=== PATIENT | male | born 1965 | race Asian ===

== ENCOUNTER → 2017-08-19 11:29 | Outpatient (CLI) | payer OTHER, SELFPAY ==
[2017-08-19 15:58] LABS: Cholesterol 241 mg/dL (200); High Density Lipoprotein 54 mg/dL; Triglycerides 161 mg/dL; Very Low Density Lipoprotein 32 mg/dL (5-40)
[2017-08-19 15:59] LABS: Hemoglobin A1c 6.8 % (4.2-6.3)
== END ==
PROVIDERS: Family Provider Family Medicine; PCP Family Medicine; Visit Provider Family Medicine
DX: E11.9 Type 2 diabetes mellitus without complications (principal); E78.1 Pure hyperglyceridemia
CPT/HCPCS: 36415; 80061; 83036

== ENCOUNTER → 2018-03-31 12:29 | Outpatient (CLI) | payer OTHER, SELFPAY ==
--- NOTE | 2018-03-31 12:34 | RAD_ITS ---
STUDY: X-RAY CHEST REASON FOR EXAM: Male, 53 years old. Pain. TECHNIQUE: Frontal and lateral views of the chest. COMPARISON: None. FINDINGS: The lungs are clear and expanded. There is no demonstrated pleural abnormality. Normal size heart. Normal mediastinum and aaliyah. Normal visualized pulmonary arteries. Normal visualized aortic arch and descending thoracic aorta. Normal visualized thoracic spine. Normal visualized ribs, clavicles, and shoulders. There is no demonstrated abnormality of the visualized soft tissue structures of the upper abdomen. RAD/Chest PA and Lateral IMPRESSION: Normal x-ray examination of the chest. Electronically Signed: Leon Morton MD at 12:44 EDT , Service support ,
== END ==
PROVIDERS: Family Provider Family Medicine; PCP Family Medicine; Visit Provider Family Medicine
DX: R07.9 Chest pain, unspecified (principal)
CPT/HCPCS: 71046

== ENCOUNTER → 2018-08-23 11:35 | Outpatient (CLI) | payer OTHER, SELFPAY | PROVIDERS: Family Provider Family Medicine; PCP Family Medicine; Referring Provider Family Medicine; Visit Provider Family Medicine | DX: E11.21 Type 2 diabetes mellitus with diabetic nephropathy (principal); E78.5 Hyperlipidemia, unspecified; I10 Essential (primary) hypertension; M10.9 Gout, unspecified ==

== ENCOUNTER → 2019-01-18 | Outpatient (CLI) | payer OTHER, SELFPAY | END | disposition home or self-care (01) | LOC: LABSPEC 01-19 06:47 | PROVIDERS: Family Provider Family Medicine; PCP Family Medicine; Visit Provider Family Medicine | DX: L82.0 Inflamed seborrheic keratosis (principal) ==

== ENCOUNTER → 2019-01-18 | Outpatient (CLI) | payer OTHER, SELFPAY ==
--- NOTE | 2019-01-18 | TISS_PTH ---
PATIENT: MERY MADRID LOC: [facility] U#:[id number] AGE/SX: 54/M ROOM: RE01/18/[address]: Dr. Myron Ramos DO : 1965 BED: DIS: 01/18/2019 SPEC #: [id number] RECD: 01/18/19 17:15 STATUS: JEREMY NAHOMY #: [id number] DANIELA: 01/18/19 00:[address]: Myron Ramos DEPT: SURGICAL PATHOLOGY RECD BY: Taisha Bob Tissues: Skin of arm Procedures: Surgery Specimen Level IV HEADER OPERATION: Punch biopsy atypical mole PRE-OP DIAGNOSIS: Changing dark nevus right elbow, rule out melanoma TISSUE SUBMITTED: Punch biopsy, 5mm, right elbow MICROSCOPIC DIAGNOSIS Skin lesion of right elbow, punch biopsy: Verrucoid keratosis with mild atypia. Parakeratosis. See comment. AM:denisse 01/22/19 COMMENT A melanotic lesion is not identified.. Excision is recommended if clinically indicated. Case has been reviewed in consultation with Dr. Knight who concurs with the above diagnosis. IDC:ELENA MICROSCOPIC DESCRIPTION Slides are reviewed. GROSS DESCRIPTION Received is one container labeled with the patient's name and not further designated. The specimen consists of a punch biopsy of guzman-white skin measuring 0.4 cm in diameter and 0.3 cm in length. The entire specimen is submitted in one cassette. / ELENA:denisse 01/19/19 TC:5 CPT: 93440
== END | disposition home or self-care (01) ==
PROVIDERS: Family Provider Family Medicine; PCP Family Medicine; Referring Provider Family Medicine; Visit Provider Family Medicine
DX: L82.0 Inflamed seborrheic keratosis (principal); R23.4 Changes in skin texture
CPT/HCPCS: 88305

== ENCOUNTER → 2020-06-02 17:54 | Outpatient (CLI) | payer OTHER, SELFPAY | PROVIDERS: PCP Family Medicine; Referring Provider Family Medicine; Visit Provider Family Medicine | DX: Z03.818 Encounter for observation for suspected exposure to other biological agents ruled out (principal) | CPT/HCPCS: 87635; C9803; U0003 ==

== ENCOUNTER → 2020-12-02 14:07 | Outpatient (CLI) | payer OTHER, SELFPAY ==
--- NOTE | 2020-12-02 14:10 | RAD_ITS ---
STUDY: X-RAY - PELVIS REASON FOR EXAM: Male, 55 years old. PAIN TECHNIQUE: One view of the pelvis was obtained. COMPARISON: None. FINDINGS: There is a non-specific bowel gas pattern. Normal visualized soft tissue structures. Normal bilateral iliac wings, sacroiliac joints and visualized sacrum. Normal visualized bilateral superior and inferior pubic rami. Normal pubic symphysis. Normal ischial tuberosities. Normal visualized right femoral head. Normal right acetabulum. Normal right hip joint. Normal visualized left femoral head. Normal left acetabulum. Normal left hip joint. RAD/Pelvis 1 or 2 Views IMPRESSION: Normal x-ray examination of the pelvis. Electronically Signed: Juan Marr MD at 8:43 EDT Tel , Service support ,
[2020-12-02 16:16] LABS: Absolute Lymphocyte Count 1.84 X10^3/uL (0.83-4.51); Absolute Neutrophil Count 2.5 X10^3/uL (2.0-7.7); Basophil# 0.06 X10^3/uL; Basophil% 1.2 % (0-1); Eosinophil# 0.33 X10^3/uL; Eosinophils% 6.4 % (0-5); Hematocrit 48.8 % (40-54); Hemoglobin 15.9 g/dL (13.0-16.5); Lymphocyte # 1.84 X10^3/ul (0.83-4.51); Lymphocyte % 35.5 % (19-41); Mean Corp Hgb Conc 32.6 g/dL (32-36); Mean Corpuscular Hgb 28.1 pg (27.0-32.0); Mean Corpuscular Volume 86.4 fL (80-94); Mean Platelet Vol. 9.2 fl (6.2-12.0); Monocyte# 0.46 X10^3/uL; Monocyte% 8.9 % (0-10); NRBC Flagged by Analyzer 0 % (0-5); Neutrophil # 2.46 X10^3/uL (2.7-7.7); Neutrophil % 47.4 % (47-70); Platelet Count 250 K/mm3 (150-450); RBC Distribution Width CV 12.9 % (11.6-14.6); RBC Distribution Width SD 39.9 fl (35.1-43.9); Red Blood Count 5.65 M/mm3 (4.6-6.2); White Blood Count 5.2 K/mm3 (4.4-11.0)
[2020-12-02 16:30] LABS: ALB/GLOB Ratio 1.1 RATIO (0.9-2.4); AST(SGOT) 33 U/L (15-37); Alanine Aminotransfer ALT/SGPT 36 U/L (16-61); Albumin, Serum 4.2 g/dL (3.2-5.0); Alkaline Phosphatase 64 U/L (45-117); Anion Gap 5 (5-15); BUN 10 mg/dL (7-18); BUN/Creat Ratio 11.4 RATIO (10-20); CRP < 2.90 mg/L (0.0-3.0); Calcium,Total 9.1 mg/dL (8.5-10.1); Chloride 104 mmol/L (98-107); Creatinine, Serum 0.87 mg/dL (0.70-1.30); EST Glomerular Filtration Rate 97 mL/min (>60); Est Glom Filt Rate - Afr Amer 117 mL/min (>60); Globulin 3.7 g/dL (2.2-4.2); Glucose 89 mg/dL (74-106); Potassium 3.8 mmol/L (3.5-5.1); Protein, Total 7.9 g/dL (6.4-8.2); Sodium Level 141 mmol/L (136-145)
[2020-12-02 16:37] LABS: Erythrocyte Sedimentation Rate 6 mm/hr (0-20)
[2020-12-03 08:53] LABS: Hepatitis B Surface Antibody Non-Reactive; Hepatitis B Surface Antigen Non-Reactive (Nonreactive); Hepatitis C Antibody Non-Reactive (Nonreactive)
[2020-12-04 17:51] LABS: ANTINUCLEAR ANTIBODIES DIRECT Negative (Negative)
[2020-12-15 16:24] LABS: CCP IgG Antibodies 10 units (0-19); HLA B27 Negative (.)
== END ==
PROVIDERS: PCP Family Medicine; Referring Provider Internal Medicine Rheumatology; Visit Provider Internal Medicine Rheumatology
DX: M06.4 Inflammatory polyarthropathy (principal); M10.9 Gout, unspecified; M21.41 Flat foot [pes planus] (acquired), right foot; E11.9 Type 2 diabetes mellitus without complications; I10 Essential (primary) hypertension; E78.5 Hyperlipidemia, unspecified; G47.33 Obstructive sleep apnea (adult) (pediatric)
CPT/HCPCS: 36415; 72170; 80053; 81374; 85025; 85652; 86038; 86140; 86200; 86431; 86706; 86803; 87340

== ENCOUNTER → 2021-01-26 15:47 | Outpatient (CLI) | payer OTHER, SELFPAY ==
[2021-01-26 17:45] LABS: Absolute Lymphocyte Count 1.75 X10^3/uL (0.83-4.51); Absolute Neutrophil Count 2.4 X10^3/uL (2.0-7.7); Basophil# 0.05 X10^3/uL; Eosinophil# 0.25 X10^3/uL; Hematocrit 44.8 % (40-54); Hemoglobin 14.8 g/dL (13.0-16.5); Lymphocyte # 1.75 X10^3/ul (0.83-4.51); Mean Corpuscular Hgb 28.1 pg (27.0-32.0); Mean Corpuscular Volume 85.2 fL (80-94); Mean Platelet Vol. 9.2 fl (6.2-12.0); Monocyte# 0.54 X10^3/uL; Monocyte% 10.8 % (0-10); NRBC Flagged by Analyzer 0 % (0-5); Platelet Count 234 K/mm3 (150-450); RBC Distribution Width CV 12.5 % (11.6-14.6); RBC Distribution Width SD 38.9 fl (35.1-43.9); Red Blood Count 5.26 M/mm3 (4.6-6.2)
[2021-01-26 18:17] LABS: ALB/GLOB Ratio 1.2 RATIO (0.9-2.4); AST(SGOT) 27 U/L (15-37); Alanine Aminotransfer ALT/SGPT 34 U/L (16-61); Alkaline Phosphatase 62 U/L (45-117); Anion Gap 10 (5-15); BUN 16 mg/dL (7-18); BUN/Creat Ratio 14.4 RATIO (10-20); Calcium,Total 8.9 mg/dL (8.5-10.1); Chloride 105 mmol/L (98-107); Creatinine, Serum 1.11 mg/dL (0.70-1.30); EST Glomerular Filtration Rate 73 mL/min (>60); Est Glom Filt Rate - Afr Amer 89 mL/min (>60); Globulin 3.4 g/dL (2.2-4.2); Glucose 114 mg/dL (74-106); Potassium 3.6 mmol/L (3.5-5.1); Protein, Total 7.4 g/dL (6.4-8.2); Sodium Level 139 mmol/L (136-145)
== END ==
PROVIDERS: PCP Family Medicine; Referring Provider Internal Medicine Rheumatology; Visit Provider Internal Medicine Rheumatology
DX: M05.79 Rheumatoid arthritis with rheumatoid factor of multiple sites without organ or systems involvement (principal); Z79.899 Other long term (current) drug therapy; M10.9 Gout, unspecified; M21.41 Flat foot [pes planus] (acquired), right foot; E11.9 Type 2 diabetes mellitus without complications; I10 Essential (primary) hypertension; E78.5 Hyperlipidemia, unspecified; G47.33 Obstructive sleep apnea (adult) (pediatric)
CPT/HCPCS: 36415; 80053; 85025

== ENCOUNTER 2022-06-11 11:11 | Outpatient (CLI) | payer BC, SELFPAY ==
[2022-06-11 12:44] LABS: Absolute Neutrophil Count 2.4 X10^3/uL (2.0-7.7); Basophil# 0.06 X10^3/uL; Basophil% 1.2 % (0-1); Eosinophil# 0.23 X10^3/uL; Eosinophils% 4.5 % (0-5); Hematocrit 47.7 % (40-54); Hemoglobin 15.9 g/dL (13.0-16.5); Lymphocyte % 36.9 % (19-41); Mean Corp Hgb Conc 33.3 g/dL (32-36); Mean Corpuscular Hgb 29.1 pg (27.0-32.0); Mean Corpuscular Volume 87.4 fL (80-94); Mean Platelet Vol. 9.2 fl (6.2-12.0); Monocyte# 0.56 X10^3/uL; Monocyte% 10.9 % (0-10); NRBC Flagged by Analyzer 0 % (0-5); Neutrophil # 2.35 X10^3/uL (2.7-7.7); Neutrophil % 45.5 % (47-70); Platelet Count 227 K/mm3 (150-450); RBC Distribution Width SD 41.5 fl (35.1-43.9); Red Blood Count 5.46 M/mm3 (4.6-6.2); White Blood Count 5.2 K/mm3 (4.4-11.0)
[2022-06-11 16:09] LABS: ALB/GLOB Ratio 1.3 RATIO (0.9-2.4); AST(SGOT) 24 U/L (15-37); Alanine Aminotransfer ALT/SGPT 40 U/L (16-61); Albumin, Serum 4.3 g/dL (3.2-5.0); Alkaline Phosphatase 57 U/L (45-117); Anion Gap 8 (5-15); BUN 10 mg/dL (7-18); BUN/Creat Ratio 10.7 RATIO (10-20); Calcium,Total 9.6 mg/dL (8.5-10.1); Chloride 104 mmol/L (98-107); Cholesterol 98 mg/dL (200); Creatinine, Serum 0.93 mg/dL (0.70-1.30); EST Glomerular Filtration Rate 89 mL/min (>60); Est Glom Filt Rate - Afr Amer 108 mL/min (>60); Globulin 3.3 g/dL (2.2-4.2); Glucose 202 mg/dL (74-106); High Density Lipoprotein 61 mg/dL; Potassium 4.1 mmol/L (3.5-5.1); Protein, Total 7.6 g/dL (6.4-8.2); Sodium Level 136 mmol/L (136-145); Triglycerides 204 mg/dL; Uric Acid 4.8 mg/dL (3.5-7.2); Very Low Density Lipoprotein 41 mg/dL (5-40)
== END 2022-06-11 23:59 | disposition home or self-care (01) ==
LOC: BFHLAB 11:13
PROVIDERS: PCP Family Medicine; Visit Provider Family Medicine
DX: Z00.00 Encounter for general adult medical examination without abnormal findings (principal); E11.21 Type 2 diabetes mellitus with diabetic nephropathy; M10.9 Gout, unspecified
CPT/HCPCS: 36415; 80053; 80061; 82043; 82570; 83036; 84153; 84550; 85025; G0103

== ENCOUNTER → 2022-09-30 | Outpatient (CLI) | payer BC, SELFPAY ==
[2022-09-30 15:11] LABS: Absolute Lymphocyte Count 1.51 X10^3/uL (0.83-4.51); Absolute Neutrophil Count 2.5 X10^3/uL (2.0-7.7); Basophil# 0.05 X10^3/uL; Eosinophil# 0.35 X10^3/uL; Eosinophils% 7.1 % (0-5); Hematocrit 47.1 % (40-54); Hemoglobin 15.4 g/dL (13.0-16.5); Lymphocyte # 1.51 X10^3/ul (0.83-4.51); Lymphocyte % 30.6 % (19-41); Mean Corp Hgb Conc 32.7 g/dL (32-36); Mean Corpuscular Hgb 28.1 pg (27.0-32.0); Mean Corpuscular Volume 85.8 fL (80-94); Mean Platelet Vol. 9.5 fl (6.2-12.0); Monocyte# 0.48 X10^3/uL; Monocyte% 9.7 % (0-10); NRBC Flagged by Analyzer 0 % (0-5); Neutrophil # 2.51 X10^3/uL (2.7-7.7); Platelet Count 229 K/mm3 (150-450); RBC Distribution Width CV 12.6 % (11.6-14.6); RBC Distribution Width SD 38.5 fl (35.1-43.9); Red Blood Count 5.49 M/mm3 (4.6-6.2); White Blood Count 4.9 K/mm3 (4.4-11.0)
[2022-09-30 15:57] LABS: ALB/GLOB Ratio 1.3 RATIO (0.9-2.4); AST(SGOT) 20 U/L (15-37); Alanine Aminotransfer ALT/SGPT 41 U/L (16-61); Albumin, Serum 4.1 g/dL (3.2-5.0); Alkaline Phosphatase 60 U/L (45-117); Anion Gap 9 (5-15); BUN 13 mg/dL (7-18); BUN/Creat Ratio 12.9 RATIO (10-20); Calcium,Total 9.3 mg/dL (8.5-10.1); Chloride 101 mmol/L (98-107); Creatinine, Serum 1.01 mg/dL (0.70-1.30); EST Glomerular Filtration Rate 81 mL/min (>60); Est Glom Filt Rate - Afr Amer 98 mL/min (>60); Globulin 3.1 g/dL (2.2-4.2); Glucose 262 mg/dL (74-106); Protein, Total 7.2 g/dL (6.4-8.2); Sodium Level 138 mmol/L (136-145)
[2022-09-30 16:01] LABS: Hemoglobin A1c 8.6 % (3.8-5.6)
--- NOTE | 2022-09-30 16:30 | RAD_ITS ---
STUDY: X-RAY - CERVICAL SPINE REASON FOR EXAM: Male, 57 years old. Neck pain. TECHNIQUE: 5 view(s) of the cervical spine were obtained. COMPARISON: None FINDINGS: There are degenerative changes of the anterior atlantoaxial articulation. Normal odontoid process. There is straightening of the normal cervical lordosis. There is multi-level endplate spondylosis. There is multi-level degenerative disc disease with multilevel disc space narrowing. This is most marked at C5-6 and C6-7. Normal visualized intervertebral neuroforamina. There is no evidence of acute fracture or loss of vertebral axial height. There is maintenance of normal alignment. The soft tissue structures are unremarkable. RAD/Cerv Spine 4 or 5 Views IMPRESSION: Findings cervical lordosis with degenerative change. There is no acute fracture or dislocation. Electronically Signed: Jimmie Retana DO at 18:40 EDT ,
--- NOTE | 2022-09-30 16:30 | RAD_ITS ---
STUDY: X-RAY - RIGHT SHOULDER REASON FOR EXAM: Male, 57 years old. Pain. TECHNIQUE: 4 view(s) of the shoulder. COMPARISON: Chest, March 31, 2018. FINDINGS: Normal glenohumeral articulation. There is degenerative arthrosis of the acromioclavicular joint without inferior osseous spur formation. Normal acromion. There is no acute fracture, dislocation or destructive osseous pathology. Normal humeral head and visualized proximal humerus. The soft tissue structures are unremarkable. Normal visualized pulmonary apex. RAD/Shoulder min 2 Views IMPRESSION: Degenerative changes of the acromioclavicular joint. The findings appear grossly stable when compared to the prior chest film. Electronically Signed: Jimmie Retana DO at 18:41 EDT ,
== END | disposition home or self-care (01) ==
PROVIDERS: PCP Family Medicine; Referring Provider Family Medicine; Visit Provider Family Medicine
DX: E11.21 Type 2 diabetes mellitus with diabetic nephropathy (principal); I10 Essential (primary) hypertension; R42 Dizziness and giddiness; M25.511 Pain in right shoulder; M54.2 Cervicalgia
CPT/HCPCS: 36415; 72050; 73030; 80053; 83036; 85025

== ENCOUNTER → 2023-11-08 | Outpatient (CLI) | payer BC, SELFPAY ==
[2023-11-08 13:11] LABS: ALB/GLOB Ratio 1.2 RATIO (0.9-2.4); AST(SGOT) 22 U/L (15-37); Alanine Aminotransfer ALT/SGPT 24 U/L (16-61); Albumin, Serum 3.7 g/dL (3.2-5.0); Alkaline Phosphatase 57 U/L (45-117); Anion Gap 8 (5-15); BUN 10 mg/dL (7-18); BUN/Creat Ratio 11.5 RATIO (10-20); Calcium,Total 8.5 mg/dL (8.5-10.1); Chloride 107 mmol/L (98-107); Cholesterol 85 mg/dL (200); Creatinine, Serum 0.87 mg/dL (0.70-1.30); EST Glomerular Filtration Rate 96 mL/min (>60); Est Glom Filt Rate - Afr Amer 116 mL/min (>60); Glucose 111 mg/dL (74-106); High Density Lipoprotein 57 mg/dL; PSA,Total - Annual Screen 0.51 ng/mL (0.00-4.00); Potassium 3.6 mmol/L (3.5-5.1); Protein, Total 6.7 g/dL (6.4-8.2); Sodium Level 141 mmol/L (136-145); Triglycerides 158 mg/dL; Uric Acid 4.2 mg/dL (3.5-7.2); Very Low Density Lipoprotein 32 mg/dL (5-40)
[2023-11-08 13:15] LABS: Microalbumin,Random Urine 28.5 mg/L (NO RANGE EST.)
[2023-11-08 13:58] LABS: Hemoglobin A1c 5.7 % (3.8-5.6)
== END | disposition home or self-care (01) ==
LOC: BFHLAB 09:29
PROVIDERS: PCP Family Medicine; Referring Provider Family Medicine; Visit Provider Family Medicine
DX: E11.21 Type 2 diabetes mellitus with diabetic nephropathy (principal); I10 Essential (primary) hypertension; Z12.5 Encounter for screening for malignant neoplasm of prostate; M10.9 Gout, unspecified
CPT/HCPCS: 36415; 80053; 80061; 82043; 82570; 83036; 84153; 84550; G0103

== ENCOUNTER → 2024-04-27 | Outpatient (CLI) | payer BC, SELFPAY ==
--- NOTE | 2024-04-27 06:32 | MRI_ITS ---
STUDY: MRI RIGHT SHOULDER REASON FOR EXAM: Male, 59 years old. RT SHOULDER PAIN, limited ROM, YEARS TECHNIQUE: Standardized fat and water weighted pulse sequences were obtained in all 3 orthogonal planes. COMPARISON: X-ray September 30, 2022. FINDINGS: There is 3.5 cm full-thickness tear of the supraspinatus and infraspinatus tendons, series 5 images 10 through 13. Normal subscapularis tendon. Normal teres minor tendon. There is moderate muscular atrophy of the supraspinatus muscle. There is moderate muscular atrophy of the infraspinatus muscle. Normal subscapularis muscle. Normal teres minor muscle. Normal glenohumeral articulation. There is small joint effusion. Normal humeral head and visualized proximal humerus. Normal biceps labral complex. Normal intracapsular long biceps tendon. Normal labrum. Normal capsulo- ligamentous complex. Normal rotator interval. 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 There is a Type II morphology (curved) acromion, with a neutral orientation. There is mild subacromial-subdeltoid bursal fluid. Normal visualized coracohumeral and coracoacromial ligaments. Normal quadrilateral space. Normal axillary space. Normal deltoid muscle. Normal trapezius muscle. MRI/Upper Ext Joint Only(Routine) IMPRESSION: Rotator cuff tear of the supraspinatus and infraspinatus tendons with muscular atrophy. Acromioclavicular arthrosis with impingement. Electronically Signed: Selwyn Sierra MD at 15:33 EDT ,
== END | disposition home or self-care (01) ==
PROVIDERS: PCP Family Medicine; Referring Provider Family Medicine; Visit Provider Family Medicine
DX: M75.101 Unspecified rotator cuff tear or rupture of right shoulder, not specified as traumatic (principal)
CPT/HCPCS: 73221

== ENCOUNTER → 2024-06-20 | Outpatient (CLI) | payer BC, SELFPAY ==
[2024-06-20 18:07] LABS: Anion Gap 8 (5-15); BUN 11 mg/dL (7-18); BUN/Creat Ratio 10.8 RATIO (10-20); Calcium,Total 9.7 mg/dL (8.5-10.1); Chloride 103 mmol/L (98-107); Creatinine, Serum 1.02 mg/dL (0.70-1.30); EST Glomerular Filtration Rate 80 mL/min (>60); Est Glom Filt Rate - Afr Amer 97 mL/min (>60); Glucose 153 mg/dL (74-106); Potassium 3.7 mmol/L (3.5-5.1); Sodium Level 137 mmol/L (136-145)
[2024-06-20 19:43] LABS: Hemoglobin A1c 6.1 % (3.8-5.6)
== END | disposition home or self-care (01) ==
LOC: MTLAB 15:08
PROVIDERS: PCP Family Medicine
DX: S46.011A Strain of muscle(s) and tendon(s) of the rotator cuff of right shoulder, initial encounter (principal); E11.9 Type 2 diabetes mellitus without complications
CPT/HCPCS: 36415; 80048; 83036

== ENCOUNTER → 2024-06-25 | Outpatient (CLI) | payer BC, SELFPAY ==
--- NOTE | 2024-06-25 07:54 | EKG12_ITS ---
Test Reason : PRE OP Blood Pressure : */* mmHG Vent. Rate : 72 BPM Atrial Rate : 72 BPM P-R Int : 166 ms QRS Dur : 102 ms QT Int : 384 ms P-R-T Axes : 53 57 29 degrees QTcB Int : 420 ms Normal sinus rhythm Normal ECG Confirmed by CHELO BOOGIE, KELSEY ([id number]), news video editor SANDRA CASTLE ([id number]) on 06/25/2024 11:00:35 AM Referred By: DEEP STRANGE Confirmed By: KELSEY WHITNEY MD
== END | disposition home or self-care (01) ==
LOC: PSN 07:54
PROVIDERS: PCP Family Medicine
DX: S46.011A Strain of muscle(s) and tendon(s) of the rotator cuff of right shoulder, initial encounter (principal); E11.9 Type 2 diabetes mellitus without complications
CPT/HCPCS: 93005

== ENCOUNTER → 2024-08-10 | Outpatient (CLI) | payer BC, SELFPAY ==
--- NOTE | 2024-08-10 15:30 | RAD_ITS ---
PROCEDURE: KNEE 4 OR MORE VIEWS REASON FOR EXAM: Pain TECHNIQUE: Four views COMPARISON: None. FINDINGS: No fracture. No suspicious bone lesion. Scattered degenerative changes [id number] in severity notably involving the patella and medial tricompartment. Normal alignment. No effusion. Soft tissues are unremarkable. RAD/Knee 4 or More Views IMPRESSION: No acute radiographic process. Degenerative changes of the left knee. Reading Location: [facility]
== END | disposition home or self-care (01) ==
LOC: MTRAD 15:27
PROVIDERS: PCP Family Medicine; Referring Provider Family Medicine; Visit Provider Family Medicine
DX: M25.562 Pain in left knee (principal)
CPT/HCPCS: 73564

== ENCOUNTER 2024-09-24 09:30 | Outpatient (RCR) | payer BC, SELFPAY ==
--- NOTE | 2024-08-09 17:20 | HP.PTEVAL_ITS ---
Patient's Visit Information Visit Information Visit Information: MERY MADRID is a 59 year old M referred to Physical Therapy by DERICK Jameson with a diagnosis of TEAR OF MUSCLE/TENDON RTC TIGHT SHOULDER. Date of Evaluation: 08/09/24 Physical Therapist: Jimbo Diaz PT, Cert MDT, OCS Visit Plan Frequency: 2-3x /Week Duration: 6 Weeks Plan: IRREPARABLE RTC DEBRIDEMENT ON 07/13/24 MRI SHOWED INFRASPINATUS AND SUPRASPINATUS TEAR PT INTERVENTIONS GRADED RTC/SCAPULAR ,POSTURAL EX' ,ROM ,ACTIVITY MODIFICATION AND MODALITIES NEEDED Subjective Subjective: This 59 y/o male presents to physical therapy with with RTC tear. Patient injury to shoulder possible skiing and cumulative affect of activity lifting and ~ 2 years ago slipped on ice. Patient eventually had MRI Rotator cuff tear of the supraspinatus and infraspinatus tendons . Seen DR Levy who referred Dr Mckeon then attempted to do surgery but RTC was irreparable thus unable to repair thus did arthroscopic debridement on . F/U PA try PT and cortisone and option of tendon graft and Reverse TSR. Patient had sling 1 day. Patient has pain with attempting to lift arm ,has difficulty with lifting OH affects ADLS and self- hygiene. Denies paresthesia/tingling. Patient is sleeping okay and no pain medication. Patient condition affects function and ADLS .Patie nt goals with increase strength. 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 Right Shoulder: Pain Intensity (Out of 10): 5 Pain Intensity Range: 10 Comment: 0/10 rest Objective Objective: POSTURE: mild forward posture PALAPTION: unremarkable NEURO: denies paresthesia/tingling AROM: shoulder flexion 140 degrees ,abduction 135 degrees ,ER 90 degrees ,IR -5 PROM: shoulder flexion 160 degrees ,abduction 160 degrees MMT: ( peak fore) infraspinatus' 6.2 ,subscapularis 14.9,supraspinatus 4.8 ,deltoid 6.8 Special Tests R Shoulder External Rotation Lag Test - RC Tear: Negative R Shoulder Supine Impingement Test - RC Tear: Positive R Shoulder Lift Off Test - Subscapular Tear: Negative R Shoulder Drop Sign - IS Test: Negative R Shoulder Empty Can - SS: Positive R Shoulder Belly Press - SupScap: Negative R Shoulder Shrug Sign - OA/Adhesive Capsulitis: Negative Balance/Special Test Scores Quick DASH Score: 30.0000 Goals Goal 1:: Patient to be I with HEP for shoulder ROM/strengthening Goal Time Frame: 4-6 Weeks Goal 2:: Patient to improve AROM shoulder flexion/abduction 150 > to improve function and ADLS Goal Time Frame: 4-6 Weeks Goal 3:: Patient to improve peak force shoulder RRC deltoid by 5 # to improve ADLS and activities above 90 degrees Goal Time Frame: 4-6 Weeks Goal 4:: Patient to improve quick dash by 5 points to improve QOL and function Goal Time Frame: 4-6 Weeks Goal 5:: Patient to demonstrate 50% improvement with less pain and improve function OH Goal Time Frame: 4-6 Weeks Rehabilitation Potential Physical Therapy Diagnosis: Patient has RTC tear attempted surgery but irreparable which was attempted on with current impairments with ROM ,weakness impairs ADLS and housework tasks thus benefit from skilled PT Rehabilitation Potential: Good Anticipated Interventions Patient/Client Instruction: Educate patient on: Condition and Plan of Care For the Purpose of:: To decrease pain, To increase ROM, To improve muscle performance and motor function, To improve ability to perform ADL's, To increase tolerance to activity/condition/position, To improve ability of physical actions for home/community/work/leisure, To improve health of tissue, To decrease soft tissue restriction, To improve balance, To reduce risk of recurrence and To prevent re-injury Other: WORK Therapeutic Exercise to Include: Strength training, Postural training, Flexibilty training, Active ROM and Scapular Strength/Stabilization For the Purpose of:: To decrease pain, To increase ROM, To improve muscle performance and motor function, To improve ability to perform ADL's, To increase tolerance to activity/condition/position, To improve ability of physical actions for home/community/work/leisure, To improve health of tissue, To decrease soft tissue restriction, To improve endurance, To improve balance, To reduce risk of recurrence and To prevent re-injury TENS: Yes IF ES: Yes Cryotherapy (ice pack, ice massage): Yes Thermo therapy (hot pack): Yes For the Purpose of:: To decrease pain, To increase ROM, To improve nutrient delivery to tissue, To increase oxygenation perfusion, To improve health of tissue and To decrease soft tissue restriction Text: Thank you for the opportunity to evaluate your patient. For Medicare and Medicare HMO plans, please review the plan of care and approve it. It will need to be FAXED BACK to us at [phone] for Medicare purposes. For Medicare only, by signing this I certify the plan of care. Please let me know if there are questions or concerns regarding this plan of care. Physician Signature: Date:
--- NOTE | 2024-08-13 16:30 | HP.PTEVAL ---
Patient's Visit Information Visit Information Visit Information: MERY MADRID is a 59 year old M referred to Physical Therapy by DERICK Jameson with a diagnosis of TEAR OF MUSCLE/TENDON RTC TIGHT SHOULDER. Date of Evaluation: 08/09/24 Physical Therapist: Joe Santizo, PT, ATC Visit Plan Frequency: 2-3x /Week Duration: 6 Weeks Plan: IRREPARABLE RTC DEBRIDEMENT ON 07/13/24 MRI SHOWED INFRASPINATUS AND SUPRASPINATUS TEAR PT INTERVENTIONS GRADED RTC/SCAPULAR ,POSTURAL EX' ,ROM ,ACTIVITY MODIFICATION AND MODALITIES NEEDED Subjective Subjective: This 59 y/o male presents to physical therapy with with RTC tear. Patient injury to shoulder possible skiing and cumulative affect of activity lifting and ~ 2 years ago slipped on ice. Patient eventually had MRI Rotator cuff tear of the supraspinatus and infraspinatus tendons . Seen DR Levy who referred Dr Mckeon then attempted to do surgery but RTC was irreparable thus unable to repair thus did arthroscopic debridement on . F/U PA try PT and cortisone and option of tendon graft and Reverse TSR. Patient had sling 1 day. Patient has pain with attempting to lift arm ,has difficulty with lifting OH affects ADLS and self- hygiene. Denies paresthesia/tingling. Patient is sleeping okay and no pain medication. Patient condition affects function and ADLS .Patient goals with increase strength. 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 Right Shoulder: Pain Intensity (Out of 10): Unrated Pain Intensity Range: 10 Comment: 0/10 rest Objective Objective: POSTURE: mild forward posture PALAPTION: unremarkable NEURO: denies paresthesia/tingling AROM: shoulder flexion 140 degrees ,abduction 135 degrees ,ER 90 degrees ,IR -5 PROM: shoulder flexion 160 degrees ,abduction 160 degrees MMT: ( peak fore) infraspinatus' 6.2 ,subscapularis 14.9,supraspinatus 4.8 ,deltoid 6.8 Special Tests R Shoulder External Rotation Lag Test - RC Tear: Negative R Shoulder Supine Impingement Test - RC Tear: Positive R Shoulder Lift Off Test - Subscapular Tear: Negative R Shoulder Drop Sign - IS Test: Negative R Shoulder Empty Can - SS: Positive R Shoulder Belly Press - SupScap: Negative R Shoulder Shrug Sign - OA/Adhesive Capsulitis: Negative Balance/Special Test Scores Lower Extremity Functional Score: 39 Quick DASH Score: 30.0000 Goals Goal 1:: Patient to be I with HEP for shoulder ROM/strengthening Goal Time Frame: 4-6 Weeks Goal 2:: Patient to improve AROM shoulder flexion/abduction 150 > to improve function and ADLS Goal Time Frame: 4-6 Weeks Goal 3:: Patient to improve peak force shoulder RRC deltoid by 5 # to improve ADLS and activities above 90 degrees Goal Time Frame: 4-6 Weeks Goal 4:: Patient to improve quick dash by 5 points to improve QOL and function Goal Time Frame: 4-6 Weeks Goal 5:: Patient to demonstrate 50% improvement with less pain and improve function OH Goal Time Frame: 4-6 Weeks Rehabilitation Potential Physical Therapy Diagnosis: Patient has RTC tear attempted surgery but irreparable which was attempted on with current impairments with ROM ,weakness impairs ADLS and housework tasks thus benefit from skilled PT Rehabilitation Potential: Good Anticipated Interventions Patient/Client Instruction: Educate patient on: Condition and Plan of Care For the Purpose of:: To decrease pain, To increase ROM, To improve muscle performance and motor function, To improve ability to perform ADL's, To increase tolerance to activity/condition/position, To improve ability of physical actions for home/community/work/leisure, To improve health of tissue, To decrease soft tissue restriction, To improve balance, To reduce risk of recurrence and To prevent re-injury Other: WORK Therapeutic Exercise to Include: Strength training, Postural training, Flexibilty training, Active ROM and Scapular Strength/Stabilization For the Purpose of:: To decrease pain, To increase ROM, To improve muscle performance and motor function, To improve ability to perform ADL's, To increase tolerance to activity/condition/position, To improve ability of physical actions for home/community/work/leisure, To improve health of tissue, To decrease soft tissue restriction, To improve endurance, To improve balance, To reduce risk of recurrence and To prevent re-injury TENS: Yes IF ES: Yes Cryotherapy (ice pack, ice massage): Yes Thermo therapy (hot pack): Yes For the Purpose of:: To decrease pain, To increase ROM, To improve nutrient delivery to tissue, To increase oxygenation perfusion, To improve health of tissue and To decrease soft tissue restriction Text: Thank you for the opportunity to evaluate your patient. For Medicare and Medicare HMO plans, please review the plan of care and approve it. It will need to be FAXED BACK to us at [phone] for Medicare purposes. For Medicare only, by signing this I certify the plan of care. Please let me know if there are questions or concerns regarding this plan of care. Physician Signature: Date:
--- NOTE | 2024-09-24 10:00 | HP.PTDCSUM ---
Discharge Summary D/C summary: It has been my pleasure to treat MERY MADRID referred by DERICK Jameson, with the diagnosis of TEAR OF MUSCLE/TENDON RTC TIGHT SHOULDER for a total of 6 visit(s). Discharge Date: Please see the following information for a summary of their discharge status. Subjective Subjective: Pt reports that he is doing pretty well. Notes less intense pain but still lacking some strength with movements. Post-operative follow up appt scheduled for Tuesday09/21/24. Pain Right Shoulder: Pain Intensity (Out of 10): 0 Objective Objective/Function: Good tolerance to the above selection of range of motion, strength and scapular stabilization. No increase in shoulder pain reported throughout. Goals Goal 1:: Patient to be I with HEP for shoulder ROM/strengthening Goal 2:: Patient to improve AROM shoulder flexion/abduction 150 > to improve function and ADLS Goal 3:: Patient to improve peak force shoulder RRC deltoid by 5 # to improve ADLS and activities above 90 degrees Goal 4:: Patient to improve quick dash by 5 points to improve QOL and function Goal 5:: Patient to demonstrate 50% improvement with less pain and improve function OH Plan Plan: IRREPARABLE RTC DEBRIDEMENT ON 07/13/24 MRI SHOWED INFRASPINATUS AND SUPRASPINATUS TEAR PT INTERVENTIONS GRADED RTC/SCAPULAR ,POSTURAL EX' ,ROM ,ACTIVITY MODIFICATION AND MODALITIES NEEDED D/C Information d/c sentence: If there are questions or concerns regarding this patient's physical therapy, please feel free to call me at [phone]. Thank you for the referral of this patient. Sincerely, Joe Santizo, PT, ATC Balance/Gait/Functional tests Balance/Special Test Scores Lower Extremity Functional Score: 59 Quick DASH Score: 30.0000
--- NOTE | 2024-09-24 10:17 | HP.PTDCSUM ---
Discharge Summary D/C summary: It has been my pleasure to treat MERY MADRID referred by DERICK Jameson, with the diagnosis of TEAR OF MUSCLE/TENDON RTC TIGHT SHOULDER for a total of 7 visit(s). Discharge Date: 09/24/24 Please see the following information for a summary of their discharge status. Subjective Subjective: Pt reports that he is doing pretty well. Notes less intense pain but still lacking some strength with movements. Post-operative follow up appt scheduled for Tuesday09/21/24. Pain Right Shoulder: Pain Intensity (Out of 10): 0 Overall Improvement % Improvement: 85 Objective Objective/Function: Good tolerance to the above selection of range of motion, strength and scapular stabilization. No increase in shoulder pain reported throughout. Goals Goal 1:: Patient to be I with HEP for shoulder ROM/strengthening Goal Progress: Goal Met Goal 2:: Patient to improve AROM shoulder flexion/abduction 150 > to improve function and ADLS Goal Progress: Goal Met Goal 3:: Patient to improve peak force shoulder RRC deltoid by 5 # to improve ADLS and activities above 90 degrees Goal Progress: Goal Met Goal 4:: Patient to improve quick dash by 5 points to improve QOL and function Goal Progress: Goal Met Goal 5:: Patient to demonstrate 50% improvement with less pain and improve function OH Goal Progress: Goal Met Plan Plan: IRREPARABLE RTC DEBRIDEMENT ON 07/13/24 MRI SHOWED INFRASPINATUS AND SUPRASPINATUS TEAR PT INTERVENTIONS GRADED RTC/SCAPULAR ,POSTURAL EX' ,ROM ,ACTIVITY MODIFICATION AND MODALITIES NEEDED D/C Information Discharge Comments: HEP d/c sentence: If there are questions or concerns regarding this patient's physical therapy, please feel free to call me at [phone]. Thank you for the referral of this patient. Sincerely, Jimbo Diaz, PT, Cert MDT, OCS Balance/Gait/Functional tests Balance/Special Test Scores Lower Extremity Functional Score: 59 Quick DASH Score: 30.0000 Improvement % Improvement: 85
== END 2024-09-24 10:24 | disposition home or self-care (01) ==
LOC: PT 09:30
PROVIDERS: PCP Family Medicine; Referring Provider Physician Assistant; Visit Provider Physician Assistant
DX: S46.011D Strain of muscle(s) and tendon(s) of the rotator cuff of right shoulder, subsequent encounter (principal)
CPT/HCPCS: 97110; 97161; 97162; 97530

== ENCOUNTER → 2025-04-16 | Outpatient (CLI) | payer BC, SELFPAY ==
[2025-04-16 15:01] LABS: Hematocrit 46.5 % (40-54); Hemoglobin 15.5 g/dL (13.0-16.5); Immature Granulocytes Count 0.040 X10^3/uL (0.0-0.0); Mean Corp Hgb Conc 33.3 g/dL (32-36); Mean Corpuscular Volume 85.8 fL (80-94); Mean Platelet Vol. 9.0 fl (6.2-12.0); NRBC Flagged by Analyzer 0 % (0-5); Platelet Count 217 K/mm3 (150-450); RBC Distribution Width CV 12.9 % (11.6-14.6); RBC Distribution Width SD 39.7 fl (35.1-43.9); Red Blood Count 5.42 M/mm3 (4.6-6.2); White Blood Count 5.1 K/mm3 (4.4-11.0)
[2025-04-16 15:30] LABS: AST(SGOT) 24 U/L (<=37); Alanine Aminotransfer ALT/SGPT 19 U/L (<=46); Albumin, Serum 4.6 g/dL (3.5-5.0); Alkaline Phosphatase 62 U/L (40-129); Anion Gap 12 (5-15); BUN 9 mg/dL (4-19); BUN/Creat Ratio 10.1 RATIO (10-20); Calcium,Total 9.4 mg/dL (7.6-11.0); Carbon Dioxide 25.1 mmol/L (21.0-32.0); Chloride 103 mmol/L (98-108); Cholesterol 102 mg/dL (<=200); Globulin 2.6 g/dL (2.2-4.2); Glucose 131 mg/dL (70-99); Low Density Lipoprotein Calc. 17 mg/dL; Potassium 4.2 mmol/L (3.3-5.1); Triglycerides 123 mg/dL; Uric Acid 3.4 mg/dL (3.5-7.2); Very Low Density Lipoprotein 25 mg/dL (5-40); cholesterol:hdl ratio screen 1.68
[2025-04-16 15:31] LABS: Creatinine, Urine (random) 42.70 mg/dL (39.00-259.00); Microalbumin,Random Urine 23.1 mg/L (<20 mg/L)
== END | disposition home or self-care (01) ==
LOC: MTLAB 13:36
PROVIDERS: PCP Family Medicine; Referring Provider Family Medicine; Visit Provider Family Medicine
DX: Z00.00 Encounter for general adult medical examination without abnormal findings (principal); E11.21 Type 2 diabetes mellitus with diabetic nephropathy; M10.9 Gout, unspecified; Z12.5 Encounter for screening for malignant neoplasm of prostate
CPT/HCPCS: 36415; 80053; 80061; 82043; 82570; 83036; 84550; 85025